=== PATIENT | male | born 1965 | race Caucasian/White ===

== ENCOUNTER 2022-06-19 15:30 | Emergency (ER) | payer BC, OTHER ==
[2022-06-19 15:49] VITALS: BP 112/64; PULSE 64; RESP 16; TEMP 98.5; BMI 25.7
== END 2022-06-19 16:21 | disposition home or self-care (01) ==
LOC: FER 15:30
DX: S01.81XA Laceration without foreign body of other part of head, initial encounter (principal); W22.8XXA Striking against or struck by other objects, initial encounter
CPT/HCPCS: 99281-25